=== PATIENT | male | born 1945 | race Hispanic/Latino ===

== ENCOUNTER 2018-10-03 11:43 | Day surgery (SDC) | payer OTHER ==
[~2018-10-03 11:43] MED LIST: NACL 0.9% 1000 ML 1,000 ML IV SCH
[2018-10-03] MEDS ORDERED: DIPRIVAN 10 MG/ML IV ONE ×2 (15:33)
--- NOTE | 2018-10-03 16:26 | Operative Report ---
Operative Report Operative Report: Date of procedure: 10/03/2018 Procedure: Colonoscopy with Hot Biopsy Polypectomy. Attending physician: Venkata Falk MD Strategic Alliances Manager: Venkata Falk MD Indication: Patient is a 73 year-old male who presents for screening colonoscopy. A colonoscopy serves to evaluate patient so that treatment may be directed based on findings. Consent: Informed consent was obtained after advising the patient and family regarding nature of this procedure, its indications, potential benefits as well as possible complications including but not limited to bleeding perforation and adverse reaction to medication, infection as well as other cardiopulmonary complications. An informed written and verbal consent was then obtained after due opportunity was provided for questions and answers. Monitoring: Patient was monitored continuously with pulse oximetry and electrocardiographic recordings as well as blood pressure recordings. Vital signs remained stable throughout this procedure with no untoward events. Preoperative assessment: Patient was assessed immediately prior to this procedure for capacity to tolerate monitored anesthesia care and moderate sedation as well as general anesthesia. Patient's ASA classification is 1, Mallampati class is 2, Hyomental distance is 3. Instrument: Triventusinon videocolonoscope. Triventusinon video endoscope. Medications: Propofol given intravenously in divided doses. For details please refer to anesthesia records. Description of procedure: Patient was placed in the left lateral decubitus position after achieving sedation, a digital rectal examination was performed following which the colonoscope was introduced into the anal verge and advanced to the cecum which was identified by the cecal valve, the appendiceal orifice, as well as by the cecal strap and direct transillumination. The colonoscope was subsequently withdrawn with careful inspection of all mucosal surfaces. Patient tolerated this procedure well and was subsequently taken to the recovery room. The following findings were noted. Findings: The preparation was fair. There was densely adherent stool in some sections of the colon. There was a diminutive flat polyp in the sigmoid colon which was removed by hot biopsy polypectomy. There were colonic diverticula in the sigmoid and descending colon of moderate severity. On the retroflexed view of the anal verge, patient had internal hemorrhoids.. Impression: Retained stool. Diminutive sigmoid colon polyp status post hot biopsy polypectomy. Diverticulosis of the colon. Internal hemorrhoids. Plan: High-fiber diet. Schedule repeat colonoscopy in the near future
--- NOTE | 2018-10-03 16:27 | Discharge Summary ---
Short Stay Discharge Plan Activity: advance as tolerated Weight Bearing Status: Weight Bear as Tolerated Diet: regular Follow up with: [facility] [Primary Care Provider] - 7 Days
[2018-10-03 17:00] VITALS: BP 132/78
--- NOTE | 2018-10-03 17:01 | Operative Report ---
Operative Report Operative Report: Operative Report: Date of procedure: 10/03/2018 Procedure: Colonoscopy with Hot Biopsy Polypectomy. Attending physician: Venkata Falk MD Assistant Auditor: Venkata Falk MD Indication: Patient is a 73 year-old male who presents for screening colonoscopy. A colonoscopy serves to evaluate patient so that treatment may be directed based on findings. Consent: Informed consent was obtained after advising the patient and family regarding nature of this procedure, its indications, potential benefits as well as possible complications including but not limited to bleeding perforation and adverse reaction to medication, infection as well as other cardiopulmonary complications. An informed written and verbal consent was then obtained after due opportunity was provided for questions and answers. Monitoring: Patient was monitored continuously with pulse oximetry and electrocardiographic recordings as well as blood pressure recordings. Vital signs remained stable throughout this procedure with no untoward events. Preoperative assessment: Patient was assessed immediately prior to this procedure for capacity to tolerate monitored anesthesia care and moderate sedation as well as general anesthesia. Patient's ASA classification is 1, Mallampati class is 2, Hyomental distance is 3. Instrument: Ravtin videocolonoscope. Ravtin video endoscope. Medications: Propofol given intravenously in divided doses. For details please refer to anesthesia records. Description of procedure: Patient was placed in the left lateral decubitus position after achieving sedation, a digital rectal examination was performed following which the colonoscope was introduced into the anal verge and advanced to the cecum which was identified by the cecal valve, the appendiceal orifice, as well as by the cecal strap and direct transillumination. The colonoscope was subsequently withdrawn with careful inspection of all mucosal surfaces. Patient tolerated this procedure well and was subsequently taken to the recovery room. The following findings were noted. Findings: The preparation was fair. There was densely adherent stool in some sections of the colon. There was a diminutive flat polyp in the sigmoid colon which was removed by hot biopsy polypectomy. There were colonic diverticula in the sigmoid and descending colon of moderate severity. On the retroflexed view of the anal verge, patient had internal hemorrhoids.. Impression: Retained stool. Diminutive sigmoid colon polyp status post hot biopsy polypectomy. Diverticulosis of the colon. Internal hemorrhoids. Plan: Follow pathology report Repeat colonoscopy in 5 years as patient had some residual stool although altogether the preparation was fair.
== END 2018-10-03 11:44 | disposition home or self-care (01) ==
LOC: GIO 11:43
PROVIDERS: ATTEND Internal Medicine Gastroenterology
DX: Z12.11 Encounter for screening for malignant neoplasm of colon (principal); K63.5 Polyp of colon; K57.30 Diverticulosis of large intestine without perforation or abscess without bleeding; K64.8 Other hemorrhoids; F32.9 Major depressive disorder, single episode, unspecified; Z85.89 Personal history of malignant neoplasm of other organs and systems; Z79.899 Other long term (current) drug therapy
CPT/HCPCS: 45384; 88305; J2704; J7030